=== PATIENT | female | born 1955 | race Caucasian/White ===

== ENCOUNTER 2023-06-12 02:21 | Emergency (ER) | payer MEDICARE, SELFPAY ==
[2023-06-12 02:24] VITALS: BP 153/93; PULSE 95; RESP 16; TEMP 37.1; O2SAT 97; BMI 44.3
--- NOTE | 2023-06-12 02:48 | ED_ITS ---
HPI - Nausea/Vomiting/Diarrhea General Chief complaint: Nausea/Vomiting/Diarrhea Time Seen by Provider: 06/12/23 02:45 Source: patient Mode of arrival: ambulance Limitations: no limitations History of Present Illness HPI Narrative: presents with recurrent vomiting and diarrhea that started around 11PM. No hematemesis. Given zofran by [employer] and still has some nausea but does feel better. No URI symptoms MD elicited complaint: Reports nausea, vomiting and diarrhea Related Data Home Medications Medication Instructions Recorded Confirmed amlodipine 5 mg tablet mg 06/12/23 ibandronate 150 mg tablet mg PO 06/12/23 omeprazole 40 mg capsule,delayed mg 06/12/23 release rosuvastatin 10 mg tablet mg 06/12/23 semaglutide 0.25 mg or 0.5 mg (2 0.25 mg subcut QWEEK 06/12/23 06/12/23 mg/1.5 mL) subcutaneous pen injector tolterodine 4 mg capsule,extended mg PO 06/12/23 release 24 hr trazodone 50 mg tablet mg 06/12/23 valsartan 80 tab 06/12/23 mg-hydrochlorothiazide 12.5 mg tablet Allergies Allergy/AdvReac Type Severity Reaction Status Date / Time No Known Drug Allergies Allergy Verified 06/12/23 02:26 Review of Systems ROS Status of ROS 10 or more systems reviewed and unremarkable except as noted in history and below Gastrointestinal Reports: abdominal pain, nausea and vomiting PFSH PFSH Social History Smoking status: Former smoker Exam Constitutional Vital Signs, click to edit/add: Last Vital Signs Temp 98.7 F 06/12/23 02:24 Pulse 95 H 06/12/23 02:24 Resp 16 06/12/23 02:24 BP 153/93 H 06/12/23 02:24 Pulse Ox 97 06/12/23 02:24 O2 Del Method Room Air 06/12/23 02:24 Common normals: no apparent distress, oriented x3, healthy appearing, alert and well nourished Eye Common normals: EOMs intact bilaterally and conjunctivae normal Respiratory Common normals: normal respiratory effort, no retractions, no use of accessory muscles and clear to auscultation bilaterally Cardio Common normals: regular rate, regular rhythm, S1 normal heart sound and S2 normal heart sound GI Common normals: Normal to inspection, nondistended, normoactive bowel sounds present and soft to palpation Extremity Common normals: normal to inspection and full ROM Neuro Common normals: oriented x3, CN's II-XII intact bilaterally, moves all extremities, no focal motor deficits and no sensory deficits noted Psych Appearance: grossly normal Course Vital Signs Vital signs: Vital Signs Temperature 98.7 F 06/12/23 02:24 Pulse Rate 95 H 06/12/23 02:24 Respiratory Rate 16 06/12/23 02:24 Blood Pressure 153/93 H 06/12/23 02:24 Pulse Oximetry 97 06/12/23 02:24 Oxygen Delivery Method Room Air 06/12/23 02:24 Temperature 98.7 F 06/12/23 02:24 Pulse Rate 95 H 06/12/23 02:24 Respiratory Rate 16 06/12/23 02:24 Blood Pressure 153/93 H 06/12/23 02:24 Pulse Oximetry 97 06/12/23 02:24 Oxygen Delivery Method Room Air 06/12/23 02:24 MDM - Nausea/Vomiting/Diarrhea MDM Narrative Medical decision making narrative: patient presents with recurrent vomiting and also one episode of diarrhea. Feeling better after hydration and anti emetics. Able to tolerate PO fluids comfortably. labs with elevated WBC clinically from demargination . No fever. VSS. lactic acid mild elevated before we started hydration. She received 2L fluid prior to discharge. Discharged home with a prescription for zofran. She is to return to the ER if vomiting not controlled Lab Data Labs: Lab Results 06/12/23 Range/Units 02:35 WBC 20.7 H (4.0-11.0) 10^3/uL RBC 4.91 (4.20-5.40) 10^6/uL Hgb 14.7 (12.0-16.0) g/dL Hct 44.2 (36.0-48.0) % MCV 90.0 (81.0-99.0) fL MCH 29.9 (26.7-34.0) pg MCHC 33.3 (29.9-35.2) g/dL RDW 13.3 (11.0-15.0) % Plt Count 306 (150-450) 10^3/uL MPV 9.4 L (9.5-13.5) fL Neut % (Auto) 91.4 H (43.0-75.0) % Lymph % (Auto) 2.9 L (20.5-60.0) % [place] % (Auto) 5.0 (1.7-12.0) % Eos % (Auto) 0.1 L (0.9-7.0) % Baso % (Auto) 0.2 (0.2-2.0) % Neut # (Auto) 18.9 H (1.4-6.5) 10^3/uL Lymph # (Auto) 0.6 L (1.2-3.8) 10^3/uL [place] # (Auto) 1.0 H (0.3-0.8) 10^3/uL Eos # (Auto) 0.0 (0.0-0.7) 10^3/uL Baso # (Auto) 0.1 (0.0-0.1) 10^3/uL Abs Immat Gran (auto) 0.09 H (0.00-0.03) 10^3/uL Imm/Tot Granulo (auto) 0.4 (0.0-0.5) % Sodium 139 (136-145) mmol/L Potassium 3.2 L (3.5-5.1) mmol/L Chloride 104 (98-107) mmol/L Carbon Dioxide 24.0 (21.0-32.0) mmol/L Anion Gap 14.2 BUN 22.0 H (7.0-18.0) mg/dL Creatinine 1.35 H (0.55-1.02) mg/dL Est GFR ( Amer) 47 L (>=60) Est GFR (Non-Af Amer) 39 L (>=60) BUN/Creatinine Ratio 16.3 Glucose 171 H (74-106) mg/dL Lactate 2.2 H* (0.4-2.0) mmol/L Calcium 8.7 (8.5-10.1) mg/dL Total Bilirubin 0.5 (0.2-1.0) mg/dL AST 19 (15-37) U/L ALT 19 (14-59) U/L Alkaline Phosphatase 72 (46-116) U/L Total Protein 7.4 (6.4-8.2) g/dL Albumin 4.1 (3.4-5.0) g/dL Globulin 3.3 g/dL Albumin/Globulin Ratio 1.2 Discharge Plan Discharge Chief Complaint: Nausea/Vomiting/Diarrhea Clinical Impression: Gastroenteritis Patient Disposition: Home, Self-Care Mode of Transportation: Private Vehicle Prescriptions / Home Meds: No Action tolterodine 4 mg capsule,extended release 24hr PO amlodipine 5 mg tablet valsartan-hydrochlorothiazide 80-12.5 mg tablet rosuvastatin 10 mg tablet semaglutide 0.25 mg or 0.5 mg(2 mg/1.5 mL) pen injector 0.25 mg subcut QWEEK Rx Instructions: for 4 weeks trazodone 50 mg tablet omeprazole 40 mg capsule,delayed release(DR/EC) ibandronate 150 mg tablet PO Instructions: Gastroenteritis (ED) Additional Instructions: follow up with your doctor early next week Zofran every 6 hours as needed for nausea and vomiting Stand Alone Forms: Portal Instructions Referrals: Physician,Non-Staff, MD [Primary Care Provider] - 1 week
[2023-06-12] MEDS: 0.9 % SODIUM CHLORIDE 1,000 ML 999 ML IV ×2 (03:00→04:30)
[2023-06-12 03:01] LABS: Basophils Absolute Auto 0.1 10^3/uL (0.0-0.1); Basophils Percent Auto 0.2 % (0.2-2.0); Eosinophils Percent Auto 0.1 % (0.9-7.0); Hematocrit 44.2 % (36.0-48.0); Hemoglobin 14.7 g/dL (12.0-16.0); Immature Granulocytes Abs Auto 0.09 10^3/uL (0.00-0.03); Immature Granulocytes Pct Auto 0.4 % (0.0-0.5); Lymphocytes Absolute Auto 0.6 10^3/uL (1.2-3.8); Lymphocytes Percent Auto 2.9 % (20.5-60.0); Mean Corpuscular HGB Conc 33.3 g/dL (29.9-35.2); Mean Corpuscular Hemoglobin 29.9 pg (26.7-34.0); Mean Platelet Volume 9.4 fL (9.5-13.5); Neutrophils Absolute Auto 18.9 10^3/uL (1.4-6.5); Neutrophils Percent Auto 91.4 % (43.0-75.0); Platelet Count 306 10^3/uL (150-450); Red Blood Count 4.91 10^6/uL (4.20-5.40); Red Cell Distribution Width 13.3 % (11.0-15.0); White Blood Count 20.7 10^3/uL (4.0-11.0)
[2023-06-12] MEDS: PROMETHAZINE HCL 25 MG/ML VIAL 12.5 MG IV (03:01)
[2023-06-12 03:18] LABS: Alanine Aminotransferase 19 U/L (14-59); Albumin Globulin Ratio 1.2; Albumin Level 4.1 g/dL (3.4-5.0); Alkaline Phosphatase 72 U/L (46-116); Anion Gap 14.2; Aspartate Amino Transferase 19 U/L (15-37); BUN Creatinine Ratio 16.3; Bilirubin Total 0.5 mg/dL (0.2-1.0); Calcium 8.7 mg/dL (8.5-10.1); Chloride 104 mmol/L (98-107); Estimated GFR (African America 47 (>=60); Estimated GFR (Non-African Ame 39 (>=60); Globulin 3.3 g/dL; Glucose 171 mg/dL (74-106); Potassium 3.2 mmol/L (3.5-5.1); Sodium 139 mmol/L (136-145); Total Protein 7.4 g/dL (6.4-8.2)
[2023-06-12 03:22] LABS: Lactate/Lactic Acid 2.2 mmol/L (0.4-2.0)
[2023-06-12 05:54] LABS: Lactate/Lactic Acid 1.4 mmol/L (0.4-2.0)
== END 2023-06-12 07:01 | disposition home or self-care (01) ==
PROVIDERS: Emergency Provider Internal Medicine
DX: K52.9 Noninfective gastroenteritis and colitis, unspecified (principal); Z87.891 Personal history of nicotine dependence; Z79.899 Other long term (current) drug therapy
CPT/HCPCS: 36415; 80053; 83605; 83631; 85025; 87045; 87493; 96361; 96374; 99284